=== PATIENT | female | born 1975 | race Caucasian/White ===

== ENCOUNTER 2019-03-29 00:30 | Emergency (ER) | payer OTHER ==
[~2019-03-29] VITALS: Ht 170.2 cm; Wt 69.9 kg
[2019-03-29 00:33] VITALS: Ht 170.2 cm; Wt 69.9 kg
[2019-03-29 02:32] VITALS: BP 120/89
== END 2019-03-29 02:32 | disposition home or self-care (01) ==
LOC: ED 00:30
DX: S69.92XA Unspecified injury of left wrist, hand and finger(s), initial encounter (principal); F41.9 Anxiety disorder, unspecified; W22.8XXA Striking against or struck by other objects, initial encounter; Y93.89 Activity, other specified; Y92.89 Other specified places as the place of occurrence of the external cause; Y99.8 Other external cause status
CPT/HCPCS: A4570

== ENCOUNTER 2019-04-22 12:31 | Emergency (ER) | payer OTHER ==
[~2019-04-22] VITALS: Ht 167.6 cm; Wt 89.8 kg
[2019-04-22 12:55] VITALS: BP 127/75; Ht 167.6 cm; Wt 89.8 kg
== END 2019-04-22 15:40 | disposition home or self-care (01) ==
LOC: ED 12:31
DX: S60.222A Contusion of left hand, initial encounter (principal); F41.9 Anxiety disorder, unspecified; W22.8XXA Striking against or struck by other objects, initial encounter; Y93.89 Activity, other specified; Y92.89 Other specified places as the place of occurrence of the external cause; Y99.8 Other external cause status
CPT/HCPCS: A4570